=== PATIENT | male | born 1995 | race Caucasian/White ===

== ENCOUNTER 2017-12-19 12:42 | Inpatient (IN) | payer BC, OTHER ==
[~2017-12-19] VITALS: Ht 170.2 cm; Wt 68.0 kg
[2017-12-19] MEDS ORDERED: ALBU18HF2 INH (14:47)
[2017-12-19] MEDS ORDERED: NICO2GUM9 BC (14:47)
[2017-12-19] MEDS ORDERED: MAGNESIUM HYDROXIDE 30 ML LIQUID UDC PO PRN (15:00)
[2017-12-19] MEDS ORDERED: BUPRENORPHINE HCL 2 MG TAB.SUBL SL ONE (15:00)
[2017-12-19] MEDS ORDERED: MIRALAX 17 GM POWD.PACK PO PRN (15:00)
[2017-12-19] MEDS ORDERED: LOPERAMIDE HCL 2 MG CAPSULE PO PRN ×2 (15:00)
[2017-12-19] MEDS ORDERED: 6 DAY PHENOBARBITAL TAPER -SERENITY PROTOCOL PO PRN (15:00)
[2017-12-19] MEDS ORDERED: diphenhydrAMINE 50 MG CAPSULE PO PRN (15:00)
[2017-12-19] MEDS ORDERED: PHENOBARBITAL 60 MG TABLET PO ONE (15:00)
[2017-12-19] MEDS ORDERED: 5 DAY TAPER BUPRENORPHINE -SERENITY PROTOCOL SL PRN (15:00)
[2017-12-19] MEDS ORDERED: ONDANSETRON 4 MG/2 ML VIAL IM PRN (15:00)
[2017-12-19] MEDS ORDERED: HYDROXYZINE PAMOATE 25 MG CAPSULE PO PRN (15:00)
--- NOTE | 2017-12-19 15:03 | NUR ---
Pre-Admission Note Received pt at intake. Pt is a a 22 y/o M admitted for medically supervised opiate- heroin IV and benzo- Klonopin and Xanax withdrawal. Pt is A/Ox4, has a disheveled appearance and dirty fingernails, good eye contact, is emotional and has a depressive and anxious mood. Pt is fidgety and shivering in his chair. Pt presents anxiety, restlessness, unable to sit in his chair without moving frequently, c/o nausea, chills, cold/hot flashes, generalized body aches, sensitivity to the light, headache, and piloerection of the skin. Pt is the primary source of info. Pt reports having allergies to cats. Medical hx of asthma, depression and anxiety. Has no PCP, psychiatrist. Pt reports overdosing waiting to be admitted at [facility] on the [facility] couch, paramedics were called, Narcan was administered. Pt was admitted to [facility] for 1 night, without receiving meds. Pt was sent to [facility] directly from [facility] for higher level of care. Initial VS are BP: 122/60, HR: 109, RR: 18, O2sat: 97% Substance Use Hx: 1. Heroin IV 0.75 g daily x 7 months since May 2017. Last used around [id number] yesterday 12/18/17; pt report overdosing after the last shot waiting to be admitted at [facility] and paramedics were called, Narcan administered. First used last year Nov 2016. 2. Klonopin usually 4 mg but occasionally more, up to 8 mg daily x 1.5 months. Uses Xanax when there is no Klonopin. Last used yesterday klonopin 6 mg @1300 12/18/17. First used at 21 age.
[2017-12-19 15:14] LABS: BASOPHILS # (AUTO) 0.1 K/uL (0.0-8.0); BASOPHILS % (AUTO) 0.9 % (0.0-2.0); EOSINOPHILS # (AUTO) 0.2 K/uL (0.0-0.7); EOSINOPHILS % (AUTO) 2.9 % (0.0-7.0); HEMOGLOBIN 12.9 g/dL (12.5-16.3); LYMPHOCYTES # (AUTO) 1.8 K/uL (20.0-40.0); LYMPHOCYTES % (AUTO) 22.6 % (20.5-74.5); MEAN CORPUSCULAR HEMOGLOBIN 30.9 uug (23.8-33.4); MEAN CORPUSCULAR HGB CONC 35 g/dL (32.5-36.3); MEAN CORPUSCULAR VOLUME 88.3 fL (73.0-96.2); MONOCYTES # (AUTO) 0.7 K/uL (2.0-10.0); MONOCYTES % (AUTO) 8.7 % (0-11); NEUTROPHILS # (AUTO) 5.2 K/uL (1.8-8.9); NEUTROPHILS % (AUTO) 64.9 % (31.5-64.5); PLATELET COUNT (AUTO) 287 K/uL (152-348); RED BLOOD CELL COUNT(AUTO) 4.19 MIL/uL (4.06-5.63)
[2017-12-19] MEDS ORDERED: DIAZEPAM 10 MG TABLET PO PRN ×2 (15:15)
[2017-12-19] MEDS ORDERED: DIAZEPAM 5 MG TABLET PO PRN (15:15)
[2017-12-19 15:34] LABS: *AMPHETAMINE, URINE NEGATIVE (NEGATIVE); *BARBITURATE, URINE POSITIVE (NEGATIVE); *CANNABINOID, URINE NEGATIVE (NEGATIVE); *COCCAINE, URINE NEGATIVE (NEGATIVE); *OPIATE, URINE POSITIVE (NEGATIVE); *PHENCYCLIDINE SCREEN,URINE NEGATIVE (NEGATIVE)
[2017-12-19 15:37] LABS: ETHANOL < 3 MG/DL (0-0)
[2017-12-19] MEDS ORDERED: 5 DAY PHENOBARBITAL TAPER -SERENITY PROTOCOL PO PRN (15:45)
[2017-12-19 16:01] LABS: ALANINE AMINOTRANSFERASE 32 U/L (16-63); ALKALINE PHOSPHATASE 53 U/L (50-136); ASPARTATE AMINOTRANSFERASE 23 U/L (15-37); BILIRUBIN,TOTAL 0.2 mg/dL (0.2-1.0); CARBON DIOXIDE 25 mmol/L (21-32); CHLORIDE 102 mmol/L (98-107); GLUCOSE 91 mg/dL (74-106); MAGNESIUM 1.9 mg/dL (1.8-2.4); POTASSIUM 4.1 mmol/L (3.5-5.1); TOTAL PROTEIN, SERUM 6.8 g/dL (6.4-8.2); UREA NITROGEN, BLOOD 16 mg/dL (7-18)
[2017-12-19 16:46] VITALS: BP 100/46
[2017-12-19] MEDS: PHENOBARBITAL 60 MG TABLET PO SCH ×2 (17:00→21:51)
--- NOTE | 2017-12-19 17:00 | NUR ---
Admission Note Pt arrived on unit 1507 on 12/19/17. Pt is a 22 y/o M admitted for medically supervised opiate - heroin IV and benzo - Klonopin and Xanax withdrawal. Pt is A/Ox4, has a disheveled appearance and dirty fingernails, has good eye contact, is emotional and has a depressive and anxious mood. Pt is fidgety and shivering in his chair. Pt is currently in opiate and benzo withdrawal and present with anxiety, restlessness, clammy skin, unable to sit in his chair without moving frequently, c/o nausea, chills, cold/hot flashes, generalized body aches, sensitivity to the light, headache, elevated HR and piloerection of the skin. Pt is the primary source of info. Pt reports having allergies to cats. Medical hx of asthma, depression and anxiety. Has no PCP, psychiatrist. Pt smokes 10 ciggarettes daily and does not plan on quitting. Pt reports being admitted for 5 days at [facility] 1 week ago for sepsis due to injecting with a dirty needle. Pt reports overdosing while waiting to be admitted at [facility] on the [facility] yesterday 12/18/17. The paramedics were called, Narcan was administered and was taken to [facility] until stable and was discharged. Pt was admitted to [facility] for 1 night, without receiving meds. Pt was sent here to [facility] directly from [facility] for higher level of care. Pt reports having blackouts once a month; waking up and not remembering events from the night before. Overdosed x4; once in September, October, and August. Initial VS are BP: 122/60, HR: 109, RR: 18, O2sat: 97%. Pt ht is 5'7 and weighs 150 lbs. Skin is intact. Initial COWS 19 and CIWA 21. Substance Use Hx: 1. Heroin IV 0.75 g daily x 7 months since May 2017. Last used 0.25 g around [id number] yesterday 12/18/17; pt reported overdosed after the last use. First used last year Nov 2016. 2. Klonopin usually 4 mg but occasionally more, up to 8 mg daily x 1.5 months. Uses Xanax when there is no Klonopin. Last used yesterday klonopin 6 mg @1300 12/18/17. First used at 21 age. Treatment Hx: 1. [facility] prior to coming to [facility]; spent one night 12/18/17 2. [facility] October 2017 - 5 day suboxone taper and relasped immediately after d/c 3. [facility] August - September 2017; pt states he continued to use everyday while he was there. Pt states he is seeking treatment because, "I want freedom from my addiction as corny as it sounds. My life has been ruled by drugs and I want to change my life." Pt verbalized that he used heroin and benzos to cope with his depression and anxiety which he started to use everyday and became difficult to quit due to the severity of withdrawal symptoms and cravings. Pt stated, "it became a huge problem and I don't know what else to do but keep messing up. It went all downhill from there. I became more withdrawn and antisocial. I need help." Pt reports he lost multiple jobs and his relationship with his parents suffered due to using and stated, "my parents won't let me live with them. I am homeless. They don't trust me anymore." Pt verbalized his biggest support is his parents and do not have friends. States he is motivated because he is not happy anymore and, "I want to do good for myself and I want to enjoy my life. This is not fun at all." Pt states he desires to completed detox and go to sober living with intensive outpatient treatment. Pt reports having numerous failed attempt at sobriety but feels this time he truly wants it and is willing to do what it takes. Longest period of sobriety is 35 days in October to November 2016. Pt has been placed on a 5 day Phenobarbital and subutex taper starting today. MRSA swab taken and submitted. Educated pt w/ unit rules, med regimen and with s/s to report. Encouraged pt to verbalized feelings about situation and pt verbalized understanding. Encouraged pt to increase fluids to facilitate in detox. Safety measures in place. Side rails padded and upx2, bed in low position. Call light in within reach. Will continue to monitor.
[2017-12-19 17:30] VITALS: BP 111/60
[2017-12-19] MEDS: BUPRENORPHINE HCL 2 MG TAB.SUBL SL SCH ×2 (17:35→20:30)
--- NOTE | 2017-12-19 18:29 | NUR ---
End Of Shift Pt is currently in the rec room with other pts. Pt verbalized the taper meds have been effective in decreasing the s/s of withdrawal. Last COWS 15 and CIWA 15. Pt was upset about not being able to received cigarettes due to his age however now he was understanding. Safety measures in place. Endorsement will be given.
--- NOTE | 2017-12-19 19:30 | NUR ---
Start of shift note Received report from day shift nurse. Patient is a newly admit 22 year old male for Benzo/Opiate withdrawal. Patient was placed on 5 day Subutex and 5 day Phenobarbital taper. Patient refused Phenobarbital. MD notified, will follow up. Last CIWA . Patient presents with flat affect, depressed mood, disheveled, nauseated, abdominal cramping, anxious, restless, chills, hot and cold sweats, restless legs, bilateral hand tremors, piloerection and generalized body aches. Relaxation technique provided. Will continue to monitor
[2017-12-19 20:00] VITALS: BP 133/62
--- NOTE | 2017-12-19 20:00 | NUR ---
COWS and CIWA assessment Patient presents with flat affect, depressed mood, disheveled, nauseated, abdominal cramping, anxious, restless, chills, hot and cold sweats, restless legs, bilateral hand tremors, piloerection and generalized body aches. COWS 17 and CIWA 17
[2017-12-19] MEDS: METHOCARBAMOL 750 MG TABLET PO PRN (20:39)
--- NOTE | 2017-12-19 20:39 | NUR ---
PRN Robaxin administration Patient c/o generalized body aches. Will monitor for effectiveness
--- NOTE | 2017-12-19 21:39 | NUR ---
PRN Robaxin re-assessment Patient states Robaxin helpful and effective. Will continue to monitor
[2017-12-20] VITALS: BP 114/58
--- NOTE | 2017-12-20 | NUR ---
COWS and CIWA deferred Patient lying in bed with eyes closed. Respiration even and unlabored. Will continue to monitor.
--- NOTE | 2017-12-20 01:29 | NUR ---
COWS and CIWA assessment Patient anxious, restless , c/o headache and back pain. Relaxation technique provided. Will administer Motrin . COWS 12 and CIWA 11.
[2017-12-20] MEDS: IBUPROFEN 600 MG TABLET PO PRN ×2 (01:30→21:53)
--- NOTE | 2017-12-20 01:30 | NUR ---
PRN Motrin administration Patient c/o headache and back pain. Will monitor for effectiveness
--- NOTE | 2017-12-20 02:30 | NUR ---
PRN Motrin re-assessment Patient lying in be with eyes closed. Respiration even and unlabored. No facial grimacing. Will continue to monitor.
[2017-12-20 04:00] VITALS: BP 110/68
--- NOTE | 2017-12-20 04:00 | NUR ---
COWS and CIWA deferred Patient lying in bed with eyes closed. Respiration even and unlabored. Will continue to monitor
--- NOTE | 2017-12-20 05:40 | NUR ---
COWS and CIWA assessment Patient woke up anxious, restless and c/o headache and body aches. Relaxation technique provided. Will continue to monitor. COWS 11 and CIWA 11.
[2017-12-20] MEDS: METHOCARBAMOL 750 MG TABLET PO PRN ×2 (05:41→19:26)
[2017-12-20] MEDS: ACETAMINOPHEN 325 MG TABLET PO PRN ×3 (05:41→21:53)
--- NOTE | 2017-12-20 05:41 | NUR ---
PRN Tylenol and Robaxin administration Patient c/o Headache and muscle aches. Will monitor effectiveness
--- NOTE | 2017-12-20 06:41 | NUR ---
PRN Tylenol and Robaxin re-assessment Patient lying in bed with eyes closed. Respiration even and unlabored. No facial grimacing. Will continue to monitor.
--- NOTE | 2017-12-20 07:30 | NUR ---
Start Of Shift Pt. is a 22 y/o male admitted for the medically managed withdrawal from Opiates (Heroin) and Benzodiazepines (Xanax/Klonopin). Pt. was placed on a 5 day Subutex taper and a 5 day Phenobarbital taper to manage withdrawal symptoms. Today will be his second day of taper medications. Endorse from previous shift that pt. has issues being medication compliant with his Phenobarbital taper, and that MD is aware of his non compliance. Endorse from previous shift that pt. presented with a depressed mood, flat affect, disheveled appearance, nausea, abdominal cramping, anxious, restlessness, chills, diaphoresis, tremors, piloerection, and body aches. Last COW's 11 and CIWA 11. PRN Robaxin, Motrin and Tylenol. Received pt. in room. Pt. awake sitting up in bed with a disheveled appearance and unkempt room. Upon approach pt. is pleasant, hyper verbal, with a flat affect. Educated pt. on treatment plan and medication regiment. Safety measures in place. Will continue to monitor pt.'s behavior for safety.
[2017-12-20 08:00] VITALS: BP 115/76
--- NOTE | 2017-12-20 08:00 | NUR ---
COW/CIWA assessment COW's 12 and CIWA 15 at this time. Pt. presents with tremors, anxiety, diaphoresis, and restlessness. Pt. reports body aches, nausea and chills. Will administer medication regiment as ordered. Will continue to monitor pt.'s behavior for safety.
[2017-12-20 08:06] LABS: HEPATITIS B SURFACE AG Negative (Negative)
[2017-12-20] MEDS: THIAMINE HCL 100 MG TABLET PO SCH (08:31)
[2017-12-20] MEDS: FOLIC ACID 1 MG TABLET PO SCH (08:31)
[2017-12-20] MEDS: MAG HYDROX/AL HYDROX/SIMETH 30 ML LIQUID UDC PO PRN (08:31)
[2017-12-20] MEDS: MULTIVITAMINS,THERAPEUTIC TABLET PO SCH (08:31)
[2017-12-20] MEDS: ONDANSETRON ODT 4 MG TAB.RAPDIS SL PRN ×2 (08:32→19:26)
--- NOTE | 2017-12-20 08:32 | NUR ---
PRN Medication Pt. in bed and currently complaining of heartburn and nausea. PRN Zofran, and Mylanta given. Will continue to monitor pt.'s behavior for safety and medication effectiveness.
[2017-12-20] MEDS: BUPRENORPHINE HCL 2 MG TAB.SUBL SL SCH ×3 (08:33→21:54)
[2017-12-20] MEDS ORDERED: TUBERCULIN,PURIF.PROT.DERIV. 5 TU/0.1 ML TEST ID ONE (09:00)
[2017-12-20] MEDS: PHENOBARBITAL 60 MG TABLET PO SCH ×4 (09:00→21:53)
--- NOTE | 2017-12-20 09:00 | NUR ---
PRN Re-Assessment Pt. reports not experiencing any nausea and heartburn any longer. Medication effective. Will continue to monitor pt.'s behavior for safety.
[2017-12-20 12:00] VITALS: BP 116/63
--- NOTE | 2017-12-20 12:00 | NUR ---
COW/CIWA assessment COW's 12 and CIWA 14 at this time. Pt. presents with tremors, anxiety, diaphoresis, and restlessness. Pt. reports body aches, and chills. Pt. refused his morning dose Phenobarbital but agreed to take his 1300 dose. aware. Will continue to monitor pt.'s behavior for safety.
--- NOTE | 2017-12-20 13:03 | NUR ---
PRN Medication Pt. reports a headache of 4/10. PRN Tylenol given. Will continue to monitor pt.'s behavior for safety and medication effectiveness.
--- NOTE | 2017-12-20 13:30 | NUR ---
PRN Re-Assessment Pt. reports 0/10 headache. Medication effective. Will continue to monitor pt.'s behavior for safety.
--- NOTE | 2017-12-20 14:59 | NUR ---
Therapist prompted client to attend group therapy.
[2017-12-20 16:00] VITALS: BP 125/67
--- NOTE | 2017-12-20 16:00 | NUR ---
COW/CIWA assessment COW's 12 and CIWA 14 at this time. Pt. presents with tremors, anxiety, diaphoresis, and restlessness. Pt. reports body aches, and chills. Pt. compliant with medication regiment since his 1300 doses. Will continue to monitor pt.'s behavior for safety.
[2017-12-20] MEDS: GABAPENTIN 300 MG CAPSULE PO SCH (17:00)
--- NOTE | 2017-12-20 19:23 | NUR ---
End Of Shift Pt. is a 22 y/o male admitted for the medically managed withdrawal from Opiates (Heroin) and Benzodiazepines (Xanax/Klonopin). Pt. was placed on a 5 day Subutex taper and a 5 day Phenobarbital taper to manage withdrawal symptoms. Pt. refused his morning dose of Phenobarbital due to headaches, pt. reports having severe headaches every time he takes this medication. MD aware. Pt. compliant with 1300 dose of Phenobarbital. Throughout shift pt. presented with a depressed mood, flat affect, disheveled appearance, nausea, abdominal cramping, anxious, restlessness, chills, diaphoresis, tremors, piloerection, and body aches. Last COW's 12 and CIWA 14. Upon approach pt. is pleasant, hyper verbal, with a flat affect. Safety measures in place. Will endorse pt.'s behavior to oncoming shift.
--- NOTE | 2017-12-20 19:24 | NUR ---
START OF SHIFT Patient is a 22-year-old male admitted on 12/19/17 for benzodiazepine and opiate withdrawal. Patient is currently on a 5-day Phenobarbital and 5-day Subutex taper, tolerating well; today is day 2 of both tapers. Patients last COWS was 14 and last CIWA was 12, per endorsement. Patient received PRN Zofran this morning, PRN Mylanta and Tylenol as well; all PRNs noted to be effective. Upon assessment, patient appears disheveled and disorganized. Patient is alert and oriented x4, has a steady gait, and is coherent. Eye contact is poor. Patient complains of stomach cramps, nausea, and muscle aches bilaterally in his lower extremities, 5/10. Patient is on fall and seizure precautions, no history of seizure. Safety measures in place, side rails up x2, bed locked in low position, call light within reach. Will continue to monitor.
[2017-12-20] MEDS: DICYCLOMINE HCL 20 MG TABLET PO PRN (19:26)
--- NOTE | 2017-12-20 19:26 | NUR ---
PRN ZOFRAN, BENTYL, & ROBAXIN Patient reports nausea, stomach cramps and spasm, with body aches especially in his lower extremities. PRN Zofran given SL, PRN Bentyl and Robaxin given PO. Safety measures in place, side rails up x2, bed locked in low position, call light within reach. Will monitor for effectiveness.
--- NOTE | 2017-12-20 19:56 | NUR ---
PRN ZOFRAN REASSESSMENT Patient reports that PRN Zofran was effective in relieving his nausea. Will continue to monitor.
[2017-12-20 20:00] VITALS: BP 126/70
--- NOTE | 2017-12-20 20:00 | NUR ---
COWS 17, CIWA 24 Patient reports nausea, body aches, stomach cramps/spasm, chills and sweats, anxiety, agitation, restlessness and he has increased HR. Current COWS score 17, current CIWA 24. SN to continue monitoring and will continue to administer medications as ordered. Safety measures in place, side rails up x2, bed locked in low position, call light within reach.
--- NOTE | 2017-12-20 20:26 | NUR ---
PRN BARBRA & RHONDAAXIN REASSESSMENT Patient reports that stomach cramps have improved. Patient states that his body aches have improved as well. PRN Barbra and Elio noted to be effective. Safety measures in place, side rails up x2, bed locked in low position, call light within reach. Will continue to monitor.
--- NOTE | 2017-12-20 21:53 | NUR ---
PRN MOTRIN & TYLENOL Patient reports headache and muscle aches. Patient states that he feels warm and flushed. Current temp. 102.2, taken at 2145. Charge nurse notified. PRN Motrin and Tylenol given PO. notified' orders for urine analysis and blood cultures. Safety measures in place, call light within reach. Will monitor for effectiveness.
[2017-12-20 22:29] LABS: *BILIRUBIN,URIN NEGATIVE (NEGATIVE); *BLOOD, URINE NEGATIVE (NEGATIVE); *CLARITY,URINE CLEAR (CLEAR); *KETONES,URINE NEGATIVE (NEGATIVE); *PROTEIN,URINE NEGATIVE (NEGATIVE); *UROBILINOGEN,URINE 0.2 E.U./dl (NORMAL); LEUKOCYTE ESTERASE ,URINE NEGATIVE (NEGATIVE); NITRITE, URINE NEGATIVE (NEGATIVE); UGLUCOSE NEGATIVE (NEGATIVE)
[2017-12-20 22:37] LABS: *COLOR,URINE STRAW (YELLOW)
[2017-12-20 22:40] LABS: BACTERIA,URINE NONE SEEN /HPF (NONE SEEN); RBC,URINE NONE SEEN /HPF (0-3); SQUAMOUS EPITHELIAL CELL,UR FEW /HPF (NONE SEEN); WBC,URINE 0-3 /HPF (0-3)
--- NOTE | 2017-12-20 22:53 | NUR ---
PRN MOTRIN & TYLENOL REASSESSMENT Patient reports that headache and muscle aches have improved. PRN Motrin noted to be effective. Patient has a current temp of 98.2. PRN Tylenol noted to be effective. Urine obtained for UA, blood drawn for culture; results pending. Safety measures in place, side rails up x2, bed locked in low position, call light within reach. Will continue to monitor.
[2017-12-21] VITALS: BP 96/44
--- NOTE | 2017-12-21 | NUR ---
COWS 13, CIWA 19 Patient continues to report body aches, anxiety and restlessness, agitation, tingling in his extremities, intermittent nausea, and mild headache. Current COWS score is 13, current CIWA is 19. Safety measures in place, side rails up x2, bed locked in low position, call light within reach. Will continue to monitor.
--- NOTE | 2017-12-21 00:20 | NUR ---
PRN BENADRYL Patient reports being unable to fall asleep and requests sleep aid. PRN Benadryl given PO. Safety measures in place, call light within reach. Will monitor for effectiveness.
--- NOTE | 2017-12-21 01:20 | NUR ---
PRN BENADRYL REASSESSMENT Patient is observed sleeping in his bed with eyes closed, respirations even and unlabored. PRN Benadryl effective. Safety measures in place, side rails up x2, bed locked in low position, call light within reach. Will continue to monitor.
[2017-12-21 04:00] VITALS: BP 106/52
--- NOTE | 2017-12-21 04:00 | NUR ---
COWS & CIWA DEFERRED COWS and CIWA deferred at this time due to patient sleeping; to be assessed while patient is awake. Safety measures in place, side rails up x2, bed locked in low position, call light within reach. Will continue to monitor.
--- NOTE | 2017-12-21 07:20 | NUR ---
END OF SHIFT Patient is a 22-year-old male admitted on 12/19/17 for benzodiazepine and opiate withdrawal. Patient is currently on a 5-day Phenobarbital and 5-day Subutex taper, tolerating well; today will be day 3 for both tapers. Patients last COWS was 13 and last CIWA was 19. Patient received the following PRNs during the shift: Zofran, Bentyl, Robaxin, Motrin, Tylenol, and Benadryl. PRN medications were noted to be effective. Although patient spiked a fever last night of 102.2 around 2145, temperature remained within normal limits after PRN Tylenol was given. Urine analysis unremarkable; Blood cultures still pending. Patient slept for 6 hours, total intake of 1,355mL, void x4, stool x0. Patient is on fall and seizure precautions, no history of seizure. Safety measures in place, side rails up x2, bed locked in low position, call light within reach. Will endorse to day shift.
--- NOTE | 2017-12-21 07:20 | NUR ---
START OF SHIFT Endorse rcvd from ongoing nurse, client is is room, sound asleep, easy to arouse, RR 16, [id number]. Last CIWA 19 / COWS 13 @ 2400. PRN Motrin 600mg PO for MCALLISTER, Tylenol 650mg PO for T 102.2 and pooling measures provided, noted effective T 98.2 after an hour. Benadryl 50mg Po for inability to sleep, client slept 6 hrs. Seizure precautions. Bed in lowest/locked position. Side rails x 2 up/padded. Call light within reach.
[2017-12-21 08:50] VITALS: BP 123/70
[2017-12-21] MEDS: FOLIC ACID 1 MG TABLET PO SCH (08:58)
[2017-12-21] MEDS: GABAPENTIN 300 MG CAPSULE PO SCH ×3 (08:58→16:40)
[2017-12-21] MEDS: THIAMINE HCL 100 MG TABLET PO SCH (08:58)
[2017-12-21] MEDS: MULTIVITAMINS,THERAPEUTIC TABLET PO SCH (08:58)
--- NOTE | 2017-12-21 08:58 | NUR ---
CIWA 18 / COWS 16 Client appears disheveled, dark white earth under eyes, presents with anxiety, irritability, skin moist, enlarged pupil, tremors, and runny nose. Client reports MCALLISTER 6/10, nausea, stomach cramps, sweats, a sense of panic, and fatigue. Schedule Subutex 4mg SL administered, client refused Phenobarbital 30mg PO stating, "I get a horrible headache, dizzy, nauseous with phenobarbital, I would rather get Ativan." Educate client on risk of withdrawal induced seizure, reinforcement needed. Encourage client to attend group therapy to learn skills to maintain sober. Call light within reach.
[2017-12-21] MEDS ORDERED: BUPRENORPHINE HCL 2 MG TAB.SUBL SL SCH (09:00)
[2017-12-21] MEDS: PHENOBARBITAL 60 MG TABLET PO SCH ×3 (09:00→21:26)
[2017-12-21] MEDS: ACETAMINOPHEN 325 MG TABLET PO PRN (09:08)
--- NOTE | 2017-12-21 09:08 | NUR ---
PRN Tylenol 650mg PO administered for MCALLISTER 10/01. Call light within reach.
--- NOTE | 2017-12-21 10:08 | NUR ---
Reassess PRN Tylenol 650mg, client reports slight relief from MCALLISTER 2/10, but tolerable. Call light within reach.
[2017-12-21] MEDS: MAG HYDROX/AL HYDROX/SIMETH 30 ML LIQUID UDC PO PRN ×2 (11:50→21:29)
--- NOTE | 2017-12-21 11:50 | NUR ---
PRN Imodium 4mg PO for diarrhea, Maalox 30mg PO for heartburn. Call light within reach.
[2017-12-21 12:15] VITALS: BP 126/78
--- NOTE | 2017-12-21 12:30 | NUR ---
CIWA 16 / COWS 16 & PRN Clonidine 0.1mg PO for anxiety Client presents with anxiety, irritability, clammy skin, enlarged pupil, tremors, runny nose, and yawning. Client reports nausea, stomach cramps, sweats, restless legs, and fatigue. Schedule Gabapentin 300mg PO and PRN Clonidine 0.1mg PO for anxiety administered. Encourage client to increase PO fluid to facilitated detox. Call light within reach.
[2017-12-21] MEDS: CLONIDINE HCL 0.1 MG TABLET PO PRN (12:43)
--- NOTE | 2017-12-21 12:50 | NUR ---
Reassess PRN Imodium 4mg, client reports two episodes of loose stool. for diarrhea, Maalox 30mg slight relief from heartburn. Call light within reach.
[2017-12-21] MEDS: DICYCLOMINE HCL 20 MG TABLET PO PRN ×2 (13:25→21:28)
--- NOTE | 2017-12-21 13:25 | NUR ---
PRN Bentyl 2mg PO for abdominal spasms. Call light within reach.
--- NOTE | 2017-12-21 13:43 | NUR ---
Reassess PRN Clonidine 0.1mg, client reports feeling less anxious, P109 decreased to P92.
--- NOTE | 2017-12-21 14:25 | NUR ---
Reassess PRN Bentyl 2mg, client reports slight relief from abdominal spasms. Call light within reach.
[2017-12-21] MEDS: BUPRENORPHINE HCL 2 MG TAB.SUBL SL SCH ×2 (15:27→21:28)
--- NOTE | 2017-12-21 16:40 | NUR ---
CIWA 16 / COWS 15 Client continues to present with increase anxiety, agitation, clammy skin, and nausea. Client reports feeling of pins and needles on both legs, cold, chills, and fatigue. Schedule Gabapentin 300mg PO. Support and encourage according to plan of care rendered. Call light within reach.
[2017-12-21 16:55] VITALS: BP 128/79
[2017-12-21 17:10] LABS: BASOPHILS % (AUTO) 0.2 % (0.0-2.0); EOSINOPHILS # (AUTO) 0.1 K/uL (0.0-0.7); EOSINOPHILS % (AUTO) 1.5 % (0.0-7.0); HEMATOCRIT 36.8 % (36.7-47.1); HEMOGLOBIN 12.8 g/dL (12.5-16.3); LYMPHOCYTES # (AUTO) 2.1 K/uL (20.0-40.0); LYMPHOCYTES % (AUTO) 26.3 % (20.5-74.5); MEAN CORPUSCULAR HGB CONC 35 g/dL (32.5-36.3); MEAN CORPUSCULAR VOLUME 89.4 fL (73.0-96.2); MONOCYTES # (AUTO) 0.8 K/uL (2.0-10.0); MONOCYTES % (AUTO) 9.7 % (0-11); NEUTROPHILS # (AUTO) 4.9 K/uL (1.8-8.9); NEUTROPHILS % (AUTO) 62.3 % (31.5-64.5); PLATELET COUNT (AUTO) 271 K/uL (152-348); RED BLOOD CELL COUNT(AUTO) 4.12 MIL/uL (4.06-5.63); WHITE BLOOD COUNT (AUTO) 7.9 K/uL (3.6-10.2)
[2017-12-21 17:22] LABS: BILIRUBIN,TOTAL 0.3 mg/dL (0.2-1.0); CREATININE 0.8 mg/dL (0.6-1.3); MAGNESIUM 1.7 mg/dL (1.8-2.4); POTASSIUM 4.4 mmol/L (3.5-5.1); TOTAL PROTEIN, SERUM 6.5 g/dL (6.4-8.2)
--- NOTE | 2017-12-21 19:14 | NUR ---
END OF SHIFT Endorse client to incoming nurse, client is in room, a/o x 4.Client continues to present with anxiety, agitation, tremors, clammy skin, nausea, yawning, restless legs, and fatigue. Last CIWA 16 15 @ 1640. PRN medications administered and noted per protocol. Mag 1.7 MD Ayala notified. Client is compliant with 1/3 of group therapy. Adequate PO fluid intake 3775mL, void x 6, lose stool x 2 Consumes 50-75% of meals. Call light within reach.
--- NOTE | 2017-12-21 19:30 | NUR ---
Start of Shift Patient Received. Per endorsement, patient continues on a 5 day Ativan and 5 day Subutex taper. Patient was medicated with PRN Imodium, Maalox, Tylenol, and Bentyl with medications noted to be effective. He was noted to refuse first dose of phenobarbital but then agreed to take remainder doses. Patient also noted to refuse PPD administration. Patient was started on routine dose of gabapentin 300mg TID. Last noted COWS 15 and CIWA 16. Upon rounds, patient was noted in bed sleeping but aroused to verbal stimuli. Breathing even and non labored. Patients room is noted to be unkempt, dresser top noted with a mound of unfolded clothes, bed side table noted with empty drinks and food wrappers. Patient denies any signs and symptoms of withdrawal while at bedside. All needs attended to promptly. Will continue plan of care as ordered.
[2017-12-21 20:21] VITALS: BP 115/80
[2017-12-21] MEDS ORDERED: MAGNESIUM OXIDE 400 MG TABLET PO ONE (21:00)
--- NOTE | 2017-12-21 21:30 | NUR ---
PRN Medication Administration Patient was noted verbalizing episodes of loose stool, increased heart burn, and increased stomach cramps. PRN Imodium, Maalox, Bentyl administered with routine medications. All needs attended to promptly. Will continue to monitor.
--- NOTE | 2017-12-21 22:30 | NUR ---
PRN Medication Reassessment Patient is able to verbalize "my stomach feels better." He is also noted snacking in bed while watching TV. No episodes of loose stool verbalized. PRN Imodium, Bentyl, and Maalox noted to be effective. Will continue to monitor.
--- NOTE | 2017-12-22 00:38 | NUR ---
Vitals Refused Patient is noted in bed with eyes closed. Breathing even and non labored. no facial grimacing noted. No restlessness noted. patient noted to refuse vitals. COWS and CIWA not able to be completed as per order. Will continue to monitor.
[2017-12-22 04:28] VITALS: BP 98/56
--- NOTE | 2017-12-22 07:13 | NUR ---
End of Shift Patient is noted in bed with his eyes closed. breathing even and non labored. Patient continues on a 5 day Ativan and 5 day Subutex taper. Patient was noted to verbalize increased heart burn, loose stool, and stomach cramps and was medicated with PRN Bentyl, Imodium, and Maalox. Medications noted to be effective. He was noted to sleep a total of 5 hours. Last noted CIWA 14 and COWS 13. All needs attended to promptly. Will endorse to continue plan of care as ordered.
--- NOTE | 2017-12-22 07:30 | NUR ---
START OF SHIFT Endorse rcvd from ongoing nurse, client is is room, sound asleep, easy to arouse, RR 16, [id number]. Last CIWA 14 / COWS 13 @ 1999. PRN Imodium 4mg for diarrhea, Bentyl 20mg PO for abdominal spasms, Maalox 30mL PO for heartburn. Client slept 6 hrs. Seizure precautions. Bed in lowest/locked position. Side rails x 2 up/padded. Call light within reach.
[2017-12-22 08:00] VITALS: BP 112/64
[2017-12-22] MEDS: PHENOBARBITAL 60 MG TABLET PO SCH ×2 (09:00→21:00)
[2017-12-22] MEDS: THIAMINE HCL 100 MG TABLET PO SCH (10:00)
[2017-12-22] MEDS: GABAPENTIN 300 MG CAPSULE PO SCH ×3 (10:00→16:35)
[2017-12-22] MEDS: FOLIC ACID 1 MG TABLET PO SCH (10:00)
[2017-12-22] MEDS: MULTIVITAMINS,THERAPEUTIC TABLET PO SCH (10:00)
[2017-12-22] MEDS: BUPRENORPHINE HCL 2 MG TAB.SUBL SL SCH ×3 (10:00→21:05)
--- NOTE | 2017-12-22 10:00 | NUR ---
CIWA 14 / COWS 14 Client is in the hallway, he presents with anxious, depressed mood, avoidant gaze, restless, tremors felt, and difficulty concentrating. Client reports heartburn, nausea, stomach cramps, poor appetite, generalized body aches, hypervigilant, restless legs, and fatigue. Schedule Subutex 4mg SL administered, Client decline Phenobarbital 30mg PO stating, "I don't want to take pheno, it makes me feel dizzy, sleepy, tired, and my stomach hurts worts when I take it." Educate client on risk of discontinuing taper medications, he said, "yeah, I know I'm at risk for seizure, but I know you guys will take care of me, I'm sorry, but I can't take pheno." CN notified. Will notify MD Ayala. Call light within reach.
[2017-12-22] MEDS: MAG HYDROX/AL HYDROX/SIMETH 30 ML LIQUID UDC PO PRN ×2 (10:33→21:05)
--- NOTE | 2017-12-22 10:33 | NUR ---
PRN Maalox 30mg PO for heartburn. Call light within reach.
--- NOTE | 2017-12-22 10:52 | NUR ---
PRN Miralax 17mg PO administered for constipation. Call light within reach.
--- NOTE | 2017-12-22 11:33 | NUR ---
Reassess PRN Maalox 30mg, client report relief from heartburn. Call light within reach. Addendum: 12/22/17 at 1516 by ELIZABETH WYNN RN incorrect patient
--- NOTE | 2017-12-22 11:33 | NUR ---
Reassess PRN Maalox 30mg, client reports slight relief from heartburn. Call light within reach.
--- NOTE | 2017-12-22 11:52 | NUR ---
Reassess PRN Miralax 17mg, client reports no BM. Call light within reach.
[2017-12-22 12:55] VITALS: BP 113/74
--- NOTE | 2017-12-22 13:02 | NUR ---
CIWA 13 / COWS 13 Client continues to present with increase anxiety, agitation, clammy skin, nausea, constipation, abdominal cramps, restless legs, and difficulty staying still. Gabapentin 300mg Po Administered. Support according to plan of care rendered. Call light within reach.
[2017-12-22 16:35] VITALS: BP 108/78
--- NOTE | 2017-12-22 16:35 | NUR ---
CIWA 13 / COWS 13 Client continues to presents with moderate anxiety, restlessness, stuffy nose, restless legs, decrease appetite, stomach cramps, nausea, and fatigue. Gabapentin 300mg PO administered. Will continue to monitor. Call light within reach.
--- NOTE | 2017-12-22 19:16 | NUR ---
END OF SHIFT Endorse client to incoming nurse, client is in room, he is a/o x 4. Client continues to present with anxiety, agitation, nausea, emotional volatility, flushed face skin, clammy skin, decrease appetite, stomach cramps, and fatigue. Last CIWA 13 / COWS 13 @ 1635. Adequate PO fluid intake 2151mL, void x 3. Consumes 50-75% of meals. Call light within reach.
--- NOTE | 2017-12-22 19:30 | NUR ---
Start of Shift Patient Received. Per endorsement, patient continues on a 5 day Subutex and 5 day Phenobarbital taper. Patient was noted to refuse scheduled Phenobarbital taper. He received PRN Maalox and Miralax with medications noted to be effective. Last noted CIWA 13 and COWS 13. Patient was noted to be compliant with group and social activities. Upon rounds patient is noted in bed awake and watching TV. Patient denies any current signs and symptoms of withdrawal. All needs attended to promptly. Will continue plan of care as ordered.
[2017-12-22 20:50] VITALS: BP 127/70
[2017-12-22] MEDS: DICYCLOMINE HCL 20 MG TABLET PO PRN (21:05)
--- NOTE | 2017-12-22 21:05 | NUR ---
PRN Medication Administration Patient is noted verbalizing increased stomach cramps and heart burn. PRN Maalox and Bentyl administered with routine medication. Will continue to monitor.
--- NOTE | 2017-12-22 22:05 | NUR ---
PRN Medication Reassessment Patient is noted eating snacks and states "the medication helped for right now." PRN Bentyl and Maalox noted to be effective. will continue to monitor.
[2017-12-23 00:33] VITALS: BP 111/63
[2017-12-23 04:25] VITALS: BP 102/58
--- NOTE | 2017-12-23 07:20 | NUR ---
End of Shift Patient is noted in bed sleeping. Breathing even and non labored. Patient continues on a 5 day Subutex and 5 day Phenobarbital taper. Patient has been noted to refuse scheduled Phenobarbital doses. Patient received PRN Maalox and Bentyl with medication noted to be effective. Last noted CIWA 11 and COWS 10. Patient was noted to be compliant with group and social activities. Patient noted to sleep a total of 6 hours. All needs attended to promptly. Will endorse to continue plan of care as ordered.
--- NOTE | 2017-12-23 07:29 | NUR ---
Start of Shift Note Pt. is a 22 y/o male admitted for the medically managed withdrawal from Opiates (Heroin) and Benzodiazepines (Xanax/Klonopin). Pt. was placed on a 5 day Subutex taper, and a 5 day Phenobarbital taper to manage withdrawal symptoms. Pt. has been selective in with his Phenobarbital taper adherence and doesnt always take his scheduled dose. Endorse from previous shift pt. presented with anxiety, agitation, nausea, flushed facial skin, diaphoresis, abdominal cramps, and fatigue. Last COW's 10 and CIWA 11. Received pt. in room. Pt. laying in bed with eyes open. Upon approach pt. is pleasant, hyper verbal with a flat affect. Pt. presents with a disheveled appearance and an unkempt personal space. Educated pt. on treatment plan and medication regiment. Safety measures in place. Will continue to monitor pt.'s behavior for safety.
[2017-12-23 08:00] VITALS: BP 119/65
--- NOTE | 2017-12-23 08:00 | NUR ---
CIWA / COWS Assessment Current COWS of 11 and CIWA of 11. Pt. presents with nausea, anxiety, diarrhea, anxiety , yawning, and restlessness. Will administer medication regiment as ordered. Will continue to monitor pt. for safety.
[2017-12-23] MEDS: MULTIVITAMINS,THERAPEUTIC TABLET PO SCH (08:32)
[2017-12-23] MEDS: THIAMINE HCL 100 MG TABLET PO SCH (08:32)
[2017-12-23] MEDS: GABAPENTIN 300 MG CAPSULE PO SCH ×3 (08:32→16:16)
[2017-12-23] MEDS: MAG HYDROX/AL HYDROX/SIMETH 30 ML LIQUID UDC PO PRN ×2 (08:32→19:02)
[2017-12-23] MEDS: FOLIC ACID 1 MG TABLET PO SCH (08:32)
--- NOTE | 2017-12-23 08:32 | NUR ---
PRN Medication During morning med-pass pt. complaining of indigestion. Pt. given PRN Maalox at this time. Will continue to monitor pt.'s behavior for safety and medication effectiveness.
[2017-12-23] MEDS ORDERED: BUPRENORPHINE HCL 2 MG TAB.SUBL SL SCH (09:00)
[2017-12-23] MEDS ORDERED: PHENOBARBITAL 60 MG TABLET PO SCH (09:00)
--- NOTE | 2017-12-23 09:10 | NUR ---
PRN Re-Assessment Pt. no longer complaining of indigestion. Medication effective. Will continue to monitor pt.'s behavior for safety.
[2017-12-23] MEDS ORDERED: NICO2GUM9 BC (11:21)
[2017-12-23] MEDS ORDERED: GABA-534 PO (11:21)
[2017-12-23 12:00] VITALS: BP 127/73
--- NOTE | 2017-12-23 12:00 | NUR ---
CIWA / COWS Assessment Current COWS of 10 and CIWA of 10. Pt. presents with nausea, anxiety, diarrhea, anxiety , yawning, and restlessness. Pt. compliant with medication regiment and is able to make his needs be known. Will continue to monitor pt. for safety.
--- NOTE | 2017-12-23 15:00 | NUR ---
Therapist prompted client to attend group therapy.
[2017-12-23 16:00] VITALS: BP 118/65
--- NOTE | 2017-12-23 16:00 | NUR ---
CIWA / COWS Assessment Current COWS of 10 and CIWA of 10. Pt. presents with nausea, anxiety, diarrhea, anxiety , yawning, and restlessness. Pt. compliant with medication regiment and is able to make his needs be known. Will continue to monitor pt. for safety. Addendum: 12/23/17 at 1826 by CORY ZABALA RN CIWA / COWS Assessment Current COWS of 9 and CIWA of 9. Pt. presents with nausea, anxiety, diarrhea, anxiety , yawning, and restlessness. Pt. compliant with medication regiment and is able to make his needs be known. Will continue to monitor pt. for safety.
[2017-12-23] MEDS: CLONIDINE HCL 0.1 MG TABLET PO PRN (17:58)
--- NOTE | 2017-12-23 17:58 | NUR ---
PRN Medication Pt. approached the nursing station requesting something for anxiety. Pt. presents with red watery eyes and agitation. In room pt. informed this verse writer of the cause of his anxiety. Pt. is being discharge to a facility that he has never been to and its causing him anxiety. Pt. given PRN Vistaril and Clonidine to manage his anxiety. Will continue to monitor pt.'s behavior for safety.
--- NOTE | 2017-12-23 18:33 | NUR ---
PRN Re-Assessment Pt. walking around unit smiling and interacting with selective staff and peers. Pt. reports decreased anxiety. Medication effective, will continue to monitor pt. for safety.
--- NOTE | 2017-12-23 19:03 | NUR ---
PRN Medication Pt. in room complaining of indigestion and requesting Maalox. PRN Maalox given at this time for GI distress. Will continue to monitor for safety and medication effectiveness.
--- NOTE | 2017-12-23 19:06 | NUR ---
End of Shift Note Pt. is a 22 y/o male admitted for the medically managed withdrawal from Opiates (Heroin) and Benzodiazepines (Xanax/Klonopin). Pt. completed his 5 day subutex taper and his 5 day phenobarbital taper this morning. Throughout shift pt. presented with anxiety, agitation, diarrhea, flushed facial skin, diaphoresis, abdominal cramps, and fatigue. Last COWS of 9 and CIWA of 9. PRN Maalox, Clonidine, and Vistaril given to manage symptoms. Pt. compliant with medication regiment and treatment plan. Pt. is set to be discharged tomorrow morning to [facility] recovery. Safety measures in place. Will endorse pt. care to oncoming shift.
--- NOTE | 2017-12-23 19:30 | NUR ---
Patient is a 22 y.o male admitted on 12/19/17 for benzodiazepine and heroin withdrawal. Patient is on his last day of Subutex and Phenobarbital taper. Per report, patient has been refusing Phenobarbital. Patient is being discharged tomorrow. Patient's last COWS and CIWA reported at a 9. During rounds patient was walking up and down the couch anxiously. When completing rounds at start of shift, patient participating in group. Patient's appearance is disheveled, uncombed hair, and anxious.
--- NOTE | 2017-12-23 20:00 | NUR ---
COWS/CIWA ASSESSMENT Pt COWS at 6 and CIWA at 7. Patient anxious, pacing the couch.
[2017-12-23 20:23] VITALS: BP 126/73
--- NOTE | 2017-12-24 | NUR ---
COWS/[place] REFUSAL Pt is in the bathroom, refused assessment at this time.
--- NOTE | 2017-12-24 04:00 | NUR ---
CIWA/COWS Deferred, pt in bed with eyes closed, resp even and non labored. Will continue to monitor. Call light within reach.
--- NOTE | 2017-12-24 07:00 | NUR ---
END OF SHIFT Patient is a 22 y.o male admitted on 12/19/17 for benzodiazepine and heroin withdrawal. Patient completed his last day of Subutex and Phenobarbital taper. Patient is being discharged today. Patient's last COWS 6 and CIWA 7. During the night patient utilized bathroom for GI upset, declined needing a PRN. Throughout the shift patient was anxious about his discharge, constantly coming up to nursing station displaying paranoia over his laundry that hadn't arrived yet. Call light within reach.
--- NOTE | 2017-12-24 07:45 | NUR ---
START OF SHIFT Rcvd endorse from ongoing nurse, client is a/o x 4, he is in bed, presents with depressed mood, flat affect. Client is schedule for discharge this morning, he denies any pain, nausea, vomiting or diarrhea. Client denies any SI/HI. Client reports feeling fatigue due to inability to sleep, he states, "I'm ready to get out of here, go to my sober living, get a job, and go to meetings to keep sober." Client completed 5 day Phenobarbital, 5 day Subutex taper. Last CIWA 6 @ 2100. Client had an uneventful night, he slept 7 hrs. Seizure precautions in place. Call light within reach.
[2017-12-24 08:00] VITALS: BP 105/61
[2017-12-24] MEDS: MULTIVITAMINS,THERAPEUTIC TABLET PO SCH (08:41)
[2017-12-24] MEDS: FOLIC ACID 1 MG TABLET PO SCH (08:41)
[2017-12-24] MEDS: GABAPENTIN 300 MG CAPSULE PO SCH (08:41)
[2017-12-24] MEDS: THIAMINE HCL 100 MG TABLET PO SCH (08:41)
[2017-12-24 08:51] LABS: CREATININE 0.8 mg/dL (0.6-1.3); POTASSIUM 4.2 mmol/L (3.5-5.1)
--- NOTE | 2017-12-24 09:33 | NUR ---
Discharge note; Client is A/O x 4. Client completed treatment. All valuables, belongings, medication, and prescriptions given to client. Discharge instructions discuss with client, he verbalized understanding. Client denies any SI/HI. Client is medically cleared for discharge today per MD. Client was escorted out of the facility on 12/24/17 at 0933.
== END 2017-12-24 09:33 | disposition other institution (70) | DRG 895 ==
LOC: SRC 14:22
PROVIDERS: ADMIT Family Medicine Addiction Medicine; ATTEND Family Medicine Addiction Medicine
PROC: HZ2ZZZZ Detoxification Services for Substance Abuse Treatment (ICD-10-PCS; principal; 2017-12-19)
PROC: HZ31ZZZ Individual Counseling for Substance Abuse Treatment, Behavioral (ICD-10-PCS; 2017-12-20)
PROC: HZ41ZZZ Group Counseling for Substance Abuse Treatment, Behavioral (ICD-10-PCS; 2017-12-21)
DX: F13.230 Sedative, hypnotic or anxiolytic dependence with withdrawal, uncomplicated (principal); E87.1 Hypo-osmolality and hyponatremia; F31.30 Bipolar disorder, current episode depressed, mild or moderate severity, unspecified; F11.23 Opioid dependence with withdrawal; F41.9 Anxiety disorder, unspecified; Z81.1 Family history of alcohol abuse and dependence; Z81.3 Family history of other psychoactive substance abuse and dependence; Z59.0 Homelessness; F17.210 Nicotine dependence, cigarettes, uncomplicated; Z79.899 Other long term (current) drug therapy; F41.1 Generalized anxiety disorder; J45.909 Unspecified asthma, uncomplicated
CPT/HCPCS: 36415; 70030-TC; 80307; 80345; 80346; 80361; 83690; 83735; 85025; 86592; 86705; 86803; 87040; 87340; 87806; A4663; G0480; J8499; Q0162; Q0163